=== PATIENT | male | born 1985 | race Caucasian/White ===

== ENCOUNTER 2019-11-18 11:27 | Emergency (ER) | payer OTHER ==
[~2019-11-18] VITALS: Ht 170.2 cm; Wt 77.1 kg
== END 2019-11-18 12:35 | disposition home or self-care (01) ==
LOC: ER 11:27
DX: Z11.59 Encounter for screening for other viral diseases (principal)
CPT/HCPCS: 99283; C9803; U0003

== ENCOUNTER 2019-11-27 14:12 | Emergency (ER) | payer OTHER ==
[~2019-11-27] VITALS: Ht 170.2 cm; Wt 79.4 kg
[2019-11-27 15:11] VITALS: BP 148/76
--- NOTE | 2019-11-27 15:30 | NUR ---
covid 19 swab collected and sent to lab
--- NOTE | 2019-11-27 15:31 | NUR ---
Patient discharged to home in stable condition. Written and verbal after care instructions given. Patient verbalizes understanding of instruction.
--- NOTE | 2019-12-01 06:27 | NUR ---
RECEIVED A CALL FROM LAB REPORTING NEGATIVE RESULTS FOR COVID
== END 2019-11-27 15:31 | disposition home or self-care (01) ==
LOC: ER 14:13
DX: Z11.59 Encounter for screening for other viral diseases (principal)
CPT/HCPCS: 99283; C9803; U0003

== ENCOUNTER 2019-12-05 17:13 | Emergency (ER) | payer OTHER ==
[~2019-12-05] VITALS: Ht 170.2 cm; Wt 77.1 kg
[2019-12-05 17:13] VITALS: BP 122/81
--- NOTE | 2019-12-05 17:29 | NUR ---
covid 19 swab collected and sent to lab
--- NOTE | 2019-12-05 17:30 | NUR ---
Patient discharged to home in stable condition. Written and verbal after care instructions given. Patient verbalizes understanding of instruction.
--- NOTE | 2019-12-09 00:17 | NUR ---
RECEIVED COVID NEGATIVE RESULT FROM LAB
== END 2019-12-05 17:30 | disposition home or self-care (01) ==
LOC: ER 17:14
DX: Z11.59 Encounter for screening for other viral diseases (principal)
CPT/HCPCS: 99283; C9803; U0003

== ENCOUNTER 2019-12-17 15:41 | Emergency (ER) | payer OTHER ==
[~2019-12-17] VITALS: Ht 170.2 cm; Wt 77.1 kg
[2019-12-17 15:44] VITALS: BP 135/81
--- NOTE | 2019-12-17 16:11 | NUR ---
Patient discharged to home in stable condition. Written and verbal after care instructions given. Patient verbalizes understanding of instruction.
== END 2019-12-17 16:11 | disposition home or self-care (01) ==
LOC: ER 15:41
DX: Z11.59 Encounter for screening for other viral diseases (principal)
CPT/HCPCS: 99283; C9803; U0003

== ENCOUNTER 2019-12-25 15:14 | Emergency (ER) | payer OTHER ==
[~2019-12-25] VITALS: Ht 170.2 cm; Wt 77.1 kg
[2019-12-25 15:14] VITALS: BP 129/64
--- NOTE | 2019-12-25 15:47 | NUR ---
covid swab done and sent to lab
--- NOTE | 2019-12-25 15:48 | NUR ---
Patient discharged to home in stable condition. Written and verbal after care instructions given. Patient verbalizes understanding of instruction. Pt ambulatory with a steady gait
== END 2019-12-25 15:49 | disposition home or self-care (01) ==
LOC: ER 15:16
DX: Z11.59 Encounter for screening for other viral diseases (principal)
CPT/HCPCS: 99283; C9803; U0003

== ENCOUNTER 2020-01-02 11:22 | Emergency (ER) | payer OTHER ==
[~2020-01-02] VITALS: Ht 170.2 cm; Wt 78.0 kg
[2020-01-02 11:25] VITALS: BP 125/60
== END 2020-01-02 11:48 | disposition home or self-care (01) ==
LOC: ER 11:23
DX: Z11.59 Encounter for screening for other viral diseases (principal)
CPT/HCPCS: 99283; C9803; U0003

== ENCOUNTER 2020-01-08 10:18 | Emergency (ER) | payer OTHER ==
[~2020-01-08] VITALS: Ht 170.2 cm; Wt 77.1 kg
[2020-01-08 10:20] VITALS: BP 129/72
== END 2020-01-08 10:45 | disposition home or self-care (01) ==
LOC: ER 10:19
DX: Z20.828 Contact with and (suspected) exposure to other viral communicable diseases (principal)
CPT/HCPCS: 99283; C9803; U0003

== ENCOUNTER 2020-01-21 10:05 | Emergency (ER) | payer OTHER ==
[~2020-01-21] VITALS: Ht 170.2 cm; Wt 77.1 kg
[2020-01-21 10:13] VITALS: BP 123/90
--- NOTE | 2020-01-21 11:38 | NUR ---
COVID SWAB SENT
== END 2020-01-21 11:38 | disposition home or self-care (01) ==
LOC: ER 10:05
DX: Z20.828 Contact with and (suspected) exposure to other viral communicable diseases (principal)
CPT/HCPCS: 99283; C9803; U0003

== ENCOUNTER 2020-01-30 14:23 | Emergency (ER) | payer OTHER ==
[~2020-01-30] VITALS: Ht 170.2 cm; Wt 77.1 kg
[2020-01-30 14:28] VITALS: BP 128/76
== END 2020-01-30 15:17 | disposition home or self-care (01) ==
LOC: ER 14:24
DX: Z20.828 Contact with and (suspected) exposure to other viral communicable diseases (principal)
CPT/HCPCS: 99283; C9803; U0003

== ENCOUNTER 2020-02-05 13:00 | Emergency (ER) | payer OTHER ==
[~2020-02-05] VITALS: Ht 170.2 cm; Wt 77.1 kg
[2020-02-05 13:27] VITALS: BP 132/74
== END 2020-02-05 14:47 | disposition home or self-care (01) ==
LOC: ER 13:02
DX: Z20.828 Contact with and (suspected) exposure to other viral communicable diseases (principal)
CPT/HCPCS: 99283; C9803; U0003

== ENCOUNTER 2020-02-16 14:51 | Emergency (ER) | payer OTHER ==
[~2020-02-16] VITALS: Ht 170.2 cm; Wt 76.7 kg
[2020-02-16 14:54] VITALS: BP 120/71
--- NOTE | 2020-02-16 15:10 | NUR ---
COVID SPECIMEN OBTAINED AND SENT TO LAB.
--- NOTE | 2020-02-16 15:20 | NUR ---
Patient discharged to home in stable condition. Written and verbal after care instructions given. Patient verbalizes understanding of instruction.
== END 2020-02-16 15:20 | disposition home or self-care (01) ==
LOC: ER 14:54
DX: Z20.828 Contact with and (suspected) exposure to other viral communicable diseases (principal)
CPT/HCPCS: 99283; C9803; U0003

== ENCOUNTER 2020-02-24 12:53 | Emergency (ER) | payer OTHER ==
[~2020-02-24] VITALS: Ht 170.2 cm; Wt 79.4 kg
[2020-02-24 12:55] VITALS: BP 121/81
--- NOTE | 2020-02-24 13:20 | NUR ---
COVID SWAB DONE AND SENT TO LAB
== END 2020-02-24 13:20 | disposition home or self-care (01) ==
LOC: ER 12:56
DX: Z20.828 Contact with and (suspected) exposure to other viral communicable diseases (principal)
CPT/HCPCS: 99283; C9803; U0003

== ENCOUNTER 2020-03-01 12:43 | Emergency (ER) | payer OTHER ==
[~2020-03-01] VITALS: Ht 175.3 cm; Wt 68.0 kg
[2020-03-01 12:46] VITALS: BP 129/71
--- NOTE | 2020-03-01 13:17 | NUR ---
Patient discharged to home in stable condition. Written and verbal after care instructions given. Patient verbalizes understanding of instruction.
== END 2020-03-01 13:18 | disposition home or self-care (01) ==
LOC: ER 12:45
DX: Z20.828 Contact with and (suspected) exposure to other viral communicable diseases (principal)
CPT/HCPCS: 99283; C9803; U0003

== ENCOUNTER 2020-03-10 16:17 | Emergency (ER) | payer OTHER ==
[~2020-03-10] VITALS: Ht 170.2 cm; Wt 77.1 kg
[2020-03-10 16:22] VITALS: BP 132/84
--- NOTE | 2020-03-10 17:20 | NUR ---
COVID SWAB SENT. Patient discharged to home in stable condition. Written and verbal after care instructions given. Patient verbalizes understanding of instruction.
== END 2020-03-10 17:20 | disposition home or self-care (01) ==
LOC: ER 16:20
DX: Z20.828 Contact with and (suspected) exposure to other viral communicable diseases (principal)
CPT/HCPCS: 99283; C9803; U0003

== ENCOUNTER 2020-03-17 16:53 | Emergency (ER) | payer OTHER ==
[~2020-03-17] VITALS: Ht 170.2 cm; Wt 80.7 kg
[2020-03-17 16:56] VITALS: BP 135/84
== END 2020-03-17 17:24 | disposition home or self-care (01) ==
LOC: ER 16:56
DX: Z20.828 Contact with and (suspected) exposure to other viral communicable diseases (principal)
CPT/HCPCS: 99283; C9803; U0003

== ENCOUNTER 2020-03-26 10:23 | Emergency (ER) | payer OTHER ==
[~2020-03-26] VITALS: Ht 170.2 cm; Wt 77.1 kg
[2020-03-26 10:25] VITALS: BP 132/80
== END 2020-03-26 10:50 | disposition home or self-care (01) ==
LOC: ER 10:27
DX: Z20.828 Contact with and (suspected) exposure to other viral communicable diseases (principal)
CPT/HCPCS: 99283; C9803; U0003

== ENCOUNTER 2020-03-29 11:31 | Emergency (ER) | payer OTHER ==
[~2020-03-29] VITALS: Ht 170.2 cm; Wt 77.1 kg
[2020-03-29 11:33] VITALS: BP 130/80
--- NOTE | 2020-03-29 11:47 | NUR ---
Patient discharged to home in stable condition. Written and verbal after care instructions given. Patient verbalizes understanding of instruction.
--- NOTE | 2020-03-30 20:54 | NUR ---
LAB CALLED REGARDING NEGATIVE COVID RESULT.
== END 2020-03-29 11:48 | disposition home or self-care (01) ==
LOC: ER 11:33
DX: Z20.828 Contact with and (suspected) exposure to other viral communicable diseases (principal)
CPT/HCPCS: 99283; C9803; U0003

== ENCOUNTER 2020-04-05 11:50 | Emergency (ER) | payer OTHER ==
[~2020-04-05] VITALS: Ht 177.8 cm; Wt 76.7 kg
[2020-04-05 11:51] VITALS: BP 121/65
--- NOTE | 2020-04-05 12:10 | NUR ---
Patient discharged to home in stable condition. Written and verbal after care instructions given. Patient verbalizes understanding of instruction.
== END 2020-04-05 12:11 | disposition home or self-care (01) ==
LOC: ER 11:51
DX: Z20.828 Contact with and (suspected) exposure to other viral communicable diseases (principal)
CPT/HCPCS: 99283; C9803; U0003

== ENCOUNTER 2020-04-14 10:22 | Emergency (ER) | payer OTHER ==
[~2020-04-14] VITALS: Ht 170.2 cm; Wt 77.1 kg
[2020-04-14 10:22] VITALS: BP 121/85
== END 2020-04-14 10:40 | disposition home or self-care (01) ==
LOC: ER 10:25
DX: Z20.828 Contact with and (suspected) exposure to other viral communicable diseases (principal)
CPT/HCPCS: 99283; C9803; U0003

== ENCOUNTER 2020-04-20 15:49 | Emergency (ER) | payer OTHER ==
[~2020-04-20] VITALS: Ht 170.2 cm; Wt 65.8 kg
[2020-04-20 15:49] VITALS: BP 129/75
--- NOTE | 2020-04-20 16:33 | NUR ---
COVID TEST DONE & SENT TO LAB.
== END 2020-04-20 16:33 | disposition home or self-care (01) ==
LOC: ER 15:53
DX: Z20.828 Contact with and (suspected) exposure to other viral communicable diseases (principal)
CPT/HCPCS: 99283; C9803; U0003

== ENCOUNTER 2020-05-06 16:39 | Emergency (ER) | payer OTHER ==
[~2020-05-06] VITALS: Ht 170.2 cm; Wt 77.1 kg
[2020-05-06 16:43] VITALS: BP 118/89
== END 2020-05-06 18:06 | disposition home or self-care (01) ==
LOC: ER 16:42
DX: Z20.828 Contact with and (suspected) exposure to other viral communicable diseases (principal)
CPT/HCPCS: 99283; C9803; U0003

== ENCOUNTER 2020-05-08 11:51 | Emergency (ER) | payer OTHER ==
[~2020-05-08] VITALS: Ht 170.2 cm; Wt 77.1 kg
[2020-05-08 11:52] VITALS: BP 124/81
--- NOTE | 2020-05-08 12:15 | NUR ---
covid 19 testing, denies any symptoms, swab collected and sent to lab
--- NOTE | 2020-05-08 12:18 | NUR ---
Patient discharged to home in stable condition. Written and verbal after care instructions given. Patient verbalizes understanding of instruction.
== END 2020-05-08 12:18 | disposition home or self-care (01) ==
LOC: ER 11:52
DX: Z20.828 Contact with and (suspected) exposure to other viral communicable diseases (principal)
CPT/HCPCS: 99283; C9803; U0003

== ENCOUNTER 2020-05-12 10:05 | Emergency (ER) | payer OTHER ==
[~2020-05-12] VITALS: Ht 172.7 cm; Wt 77.1 kg
[2020-05-12 10:31] VITALS: BP 134/77
--- NOTE | 2020-05-14 04:39 | NUR ---
LAB CALLED REGARDING NEGATIVE COVID RESULT.
== END 2020-05-14 | disposition home or self-care (01) ==
LOC: ER 05-14 09:56
DX: Z20.828 Contact with and (suspected) exposure to other viral communicable diseases (principal)
CPT/HCPCS: 99283; C9803; U0003

== ENCOUNTER 2020-05-18 18:13 | Emergency (ER) | payer OTHER ==
[~2020-05-18] VITALS: Ht 170.2 cm; Wt 74.8 kg
[2020-05-18 18:16] VITALS: BP 128/81
--- NOTE | 2020-05-18 18:28 | NUR ---
Patient discharged to home in stable condition. Written and verbal after care instructions given. Patient verbalizes understanding of instruction.
--- NOTE | 2020-05-18 18:28 | NUR ---
covid 19 swab collected and sent to lab
== END 2020-05-18 18:28 | disposition home or self-care (01) ==
LOC: ER 18:18
DX: Z20.828 Contact with and (suspected) exposure to other viral communicable diseases (principal)
CPT/HCPCS: 99283; C9803; U0003

== ENCOUNTER 2020-05-23 17:57 | Emergency (ER) | payer OTHER ==
[~2020-05-23] VITALS: Ht 170.2 cm; Wt 77.1 kg
[2020-05-23 18:35] VITALS: BP 120/90
--- NOTE | 2020-05-23 18:51 | NUR ---
Patient discharged to home in stable condition. Written and verbal after care instructions given. Patient verbalizes understanding of instruction.
== END 2020-05-23 18:50 | disposition home or self-care (01) ==
LOC: ER 17:59
DX: U07.1 COVID-19 (principal)
CPT/HCPCS: 99283; C9803; U0003

== ENCOUNTER 2020-08-10 00:48 | Emergency (ER) | payer OTHER ==
[~2020-08-10] VITALS: Ht 170.2 cm; Wt 77.1 kg
[2020-08-10 00:54] VITALS: BP 122/61
== END 2020-08-10 01:45 | disposition home or self-care (01) ==
LOC: ER 00:54
DX: Z20.822 Contact with and (suspected) exposure to COVID-19 (principal)
CPT/HCPCS: 99283; C9803; U0003

== ENCOUNTER 2020-08-24 01:55 | Emergency (ER) | payer OTHER ==
[~2020-08-24] VITALS: Ht 170.2 cm; Wt 77.1 kg
[2020-08-24 01:51] VITALS: BP 119/75
== END 2020-08-24 02:54 | disposition home or self-care (01) ==
LOC: ER 01:55
DX: Z20.822 Contact with and (suspected) exposure to COVID-19 (principal)
CPT/HCPCS: 99283; C9803; U0003

== ENCOUNTER 2020-09-11 20:35 | Emergency (ER) | payer OTHER ==
[~2020-09-11] VITALS: Ht 170.2 cm; Wt 77.1 kg
[2020-09-11 20:35] VITALS: BP 126/74
== END 2020-09-11 21:41 | disposition home or self-care (01) ==
LOC: ER 20:47
DX: Z20.822 Contact with and (suspected) exposure to COVID-19 (principal)
CPT/HCPCS: 99283; C9803; U0003

== ENCOUNTER 2020-09-17 15:01 | Emergency (ER) | payer OTHER ==
[~2020-09-17] VITALS: Ht 170.2 cm; Wt 77.1 kg
[2020-09-17 15:02] VITALS: BP 120/68
--- NOTE | 2020-09-17 15:37 | NUR ---
Note lynn in EDM - 09/17/20 at 1538 by CHAU Patient discharged to home in stable condition. Written and verbal after care instructions given. Patient verbalizes understanding of instruction.IV removed. Catheter intact and site benign. Pressure and 4x4 applied to site. No bleeding noted. Pt ambulatory with a steady gait
--- NOTE | 2020-09-17 15:38 | NUR ---
Patient discharged to home in stable condition. Written and verbal after care instructions given. Patient verbalizes understanding of instruction. Pt ambulatory with a steady gait
== END 2020-09-17 15:39 | disposition home or self-care (01) ==
LOC: ER 15:02
DX: Z20.822 Contact with and (suspected) exposure to COVID-19 (principal)
CPT/HCPCS: 99283; C9803; U0003

== ENCOUNTER 2020-11-02 00:03 | Emergency (ER) | payer OTHER ==
[~2020-11-02] VITALS: Ht 170.2 cm; Wt 77.1 kg
[2020-11-02 00:05] VITALS: BP 131/76
== END 2020-11-02 00:10 | disposition home or self-care (01) ==
LOC: ER 00:04
DX: Z20.822 Contact with and (suspected) exposure to COVID-19 (principal)
CPT/HCPCS: 99283; C9803; U0003

== ENCOUNTER 2020-11-13 10:44 | Emergency (ER) | payer OTHER ==
[~2020-11-13] VITALS: Ht 170.2 cm; Wt 77.1 kg
[2020-11-13 10:45] VITALS: BP 118/71
--- NOTE | 2020-11-13 11:00 | NUR ---
The patient bibs for covid 19 testing, denies any symptoms.
== END 2020-11-13 11:25 | disposition home or self-care (01) ==
LOC: ER 10:45
DX: Z20.822 Contact with and (suspected) exposure to COVID-19 (principal)
CPT/HCPCS: 99283; C9803; U0003

== ENCOUNTER 2020-11-21 03:56 | Emergency (ER) | payer OTHER ==
[~2020-11-21] VITALS: Ht 167.6 cm; Wt 68.0 kg
[2020-11-21 04:01] VITALS: BP 118/68
--- NOTE | 2020-11-21 04:05 | NUR ---
CALLED LAB FOR COVID SWAB
== END 2020-11-21 04:36 | disposition home or self-care (01) ==
LOC: ER 04:01
DX: Z20.822 Contact with and (suspected) exposure to COVID-19 (principal)
CPT/HCPCS: 99283; C9803; U0003